=== PATIENT | female | born 1990 | race American Indian/Alaskan Native ===

== ENCOUNTER 2017-12-26 07:02 | Emergency (ER) | payer BC ==
[2017-12-26 07:42] VITALS: BP 147/83
[2017-12-26] MEDS ORDERED: ZOFRAN ORAL LIQ PO ONE (08:36)
[2017-12-26 08:57] LABS: Basophils % (Auto) 0.2 % (0.0-1.8); Hemoglobin 12.2 gm/dl (10.1-14.3); Lymphocytes # (Auto) 1.3 K/mm3 (1.2-5.4); Lymphocytes % (Auto) 8.5 % (13.4-35.0); Mean Corpuscular HGB Conc 33 % (30-34); Mean Corpuscular Hemoglobin 27 pg (28-32); Mean Corpuscular Volume 82 fl (79-97); Monocytes # (Auto) 0.7 K/mm3 (0.0-0.8); Monocytes % (Auto) 4.4 % (0.0-7.3); Platelet Count 347 K/mm3 (140-440); Red Blood Count 4.49 M/mm3 (3.65-5.03); Red Cell Distribution Width 13.5 % (13.2-15.2)
[2017-12-26 09:15] LABS: Alanine Aminotransferase 17 units/L (7-56); Albumin 4.8 g/dL (3.9-5); BUN/Creatinine Ratio 28; Blood Urea Nitrogen 17 mg/dL (7-17); Calcium 9.1 mg/dL (8.4-10.2); Hemolysis Index 29
--- NOTE | 2017-12-26 09:20 | Emergency Department Report ---
HPI - General Chief Complaint: Weakness Time Seen by Provider: 12/26/17 08:34 - HPI HPI: 27-year-old -[place] female comes in for complaint of palpitations that started this morning blood pressure was checked by her mother and was 106/50. She admits to vomiting 3 this morning nausea and dizziness and chills. Patient has no past medical history only medication she recently started was -control pills and that was on Tuesday she reports she missed a by mouth and started having her period. She has no known drug allergies. Denies any fever no abdomen pain no pelvic pain no back pain no chest pain. ED Past Medical Hx - Past Medical History Previous Medical History?: No - Surgical History Past Surgical History?: Yes Additional Surgical History: cyst removed from tailbone - Social History Smoking Status: Never Smoker Substance Use Type: Alcohol - Medications Home Medications: Home Medications Medication Instructions Recorded Confirmed Last Taken Type Ondansetron [Zofran Odt] 4 mg PO Q8HR #6 tab.rapdis 12/26/17 Unknown Rx ED Review of Systems ROS: Stated complaint: WEAKNESS Other details as noted in HPI Constitutional: chills, weakness. denies: fever Eyes: denies: eye pain, eye discharge, vision change ENT: denies: ear pain, throat pain Respiratory: denies: cough, shortness of breath, wheezing Cardiovascular: palpitations. denies: chest pain Endocrine: no symptoms reported Gastrointestinal: nausea, vomiting. denies: abdominal pain Genitourinary: denies: urgency, dysuria, discharge Musculoskeletal: denies: back pain, joint swelling, arthralgia Skin: denies: rash, lesions Neurological: other (dizziness /unbalanced). denies: headache, weakness, paresthesias Psychiatric: denies: anxiety, depression Hematological/Lymphatic: denies: easy bleeding, easy bruising Physical Exam - Physical Exam Vital Signs: Vital Signs 12/26/17 07:38 Temperature 97.9 F Pulse Rate 95 H Respiratory 16 Rate Blood Pressure 147/83 O2 Sat by Pulse 99 Oximetry Physical Exam: GENERAL: Alert and oriented x3, no apparent distress, Normal Gait, atraumatic. HEAD: Head is normocephalic and a-traumatic. EYES: Extra ocular muscles are intact. Pupils are equal, round, and reactive to light and accommodation. EARS: symetrical, atraumatic, non tender, ear canal clear and moderate cerumen, tympanic membrance non inflamed. gross auditory nml bilaterally. NOSE: Nose symetrical, Nontender,Nares appeared normal. MOUTH:Mouth is well hydrated and without lesions. Tonsils nonerythematous or swollen, Uvula midline, Tongue not elevated. Mucous membranes are moist. Posterior pharynx clear, no exudate or lesions. Patent airways. NECK: Supple. Non edematous, No carotid bruits. No lymphadenopathy or thyromegaly. LUNGS: Symetrical with respiration, No wheezing, no rales or crackles, CTAB. HEART: S1, S2 present, regular rate and rhythm without murmur, no rubs, no gallops. ABDOMEN: No organomegaly was noted,Positive bowel sounds, soft, and non- distended. . Nontender to palpation on all Quadrants, NO CVA tenderness. EXTREMITIES/MUSCULOSKELETAL: No cyanosis, clubbing, rash, lesions or edema. Full ROM bilaterally. UE/LE Pulses 2+ bilaterally. LE and UE 5+ strength bilaterally NEUROLOGIC: No focal Deficit, Cranial nerves II through XII are grossly intact. No loss of sensation, No facial droop, Negative rhomberg. PSYCHIATRIC: Mood is congruent with affect, denies suicidal or homicidal ideations. SKIN: Warm and dry, No lesions, No ulceration or induration present ED Course Vital Signs 12/26/17 07:38 Temperature 97.9 F Pulse Rate 95 H Respiratory 16 Rate Blood Pressure 147/83 O2 Sat by Pulse 99 Oximetry - Reevaluation(s) Reevaluation #1: 12/26/17 10:19 She's been reevaluated. Patient reports that she feels much better after having a Zofran and is able to hold down food. Discussed with patient will refer her to her primary care provider for further evaluation. Patient verbalized understanding. ED Medical Decision Making - Lab Data Result diagrams: 12/26/17 08:43 12/26/17 08:43 - Medical Decision Making Patient's been evaluated by this provider fast track. CBC CMP urinalysis and urine test is been ordered. Zofran given to patient. We'll start a by mouth trial. Patient verbalized understanding. Critical care attestation.: If time is entered above; I have spent that time in minutes in the direct care of this critically ill patient, excluding procedure time. ED Disposition Clinical Impression: Nausea and vomiting Qualifiers: Vomiting type: unspecified Vomiting Intractability: intractable Qualified Code( s): R11.2 - Nausea with vomiting, unspecified Disposition: DC-01 TO HOME OR SELFCARE Is pt being admited?: No Does the pt Need Aspirin: No Condition: Stable Instructions: Gastroenteritis (ED) Additional Instructions: Encouraged to keep drinking fluids and advance diet as tolerated. Discussed about following up with the primary care provider I have listed one below. Prescriptions: Ondansetron [Zofran Odt] 4 mg PO Q8HR #6 tab.rapdis Referrals: PRIMARY CARE, [Primary Care Provider] - 3-5 Days KISHAN ABBOTT [Registered Nurse] - 3-5 Days Forms: Work/School Release Form(ED), Accompanied Note
[2017-12-26 09:21] LABS: Bilirubin,Urine NEG (Negative); Blood,Urine LG (Negative); Color,Urine Yellow (Yellow); Mucus,Urine FEW /HPF; Nitrite,Urine NEG (Negative); Urobilinogen,Urine < 2.0 mg/dL (<2.0)
[2017-12-26 09:22] LABS: RBC,Urine > 182.0 /HPF (0.0-6.0)
[2017-12-26 09:26] LABS: HCG Qualitative,Urine Negative (Negative)
== END 2017-12-26 10:38 | disposition home or self-care (01) ==
LOC: ED 07:02
DX: R11.2 Nausea with vomiting, unspecified (principal); R42 Dizziness and giddiness
CPT/HCPCS: 36415; 80053; 81001; 81025; 85025; 93005; 93010; 99283; Q0162